=== PATIENT | female | born 1975 ===

== ENCOUNTER 2025-07-30 10:00 | Day surgery (SDC) | payer OTHER ==
[2025-07-22 09:21] LABS: URINE APPEARANCE Clear; URINE BILIRRUBIN Negative (NEGATIVE); URINE COLOR Yellow; URINE GLUCOSE Negative (NEGATIVE); URINE KETONE Trace (NEGATIVE); URINE LEUKOCYTE Negative; URINE NITRATE Negative; URINE PROTEIN Negative (NEGATIVE); URINE UROBILINOGEN 0.2 E.U./dl
[2025-07-22 09:22] LABS: BASO % 0.4 % (0.1-1.2); EOS # 0.08 (0.04-0.54); EOS % 1.6 % (0.7-7.0); LYMPH # 1.93 (1.18-3.74); LYMPH % 39.7 % (19.3-53.1); MEAN PLATELET VOLUME 9.20 fl (9.4-12.4); MONO # 0.25 (0.24-0.82); MONO % 5.1 % (4.7-12.5); NEUT # 2.57 (1.56-6.13); NEUT % 53.0 % (34.0-71.1); RED CELL DISTRIBUTION WIDTH 12.2 % (11.6-14.4)
[2025-07-22 09:24] VITALS: BP 124/86
[2025-07-22 09:25] LABS: URINE BACTERIA 21.5 uL (0.0-1933); URINE EPITHELIAL CELLS 2.4 uL (0.0-38.8); URINE RBC 18.1 uL (0.0-20.8); URINE WBC 3.0 uL (0.0-23.2)
[2025-07-22 09:28] LABS: URINE BLOOD TRACES; URINE CAST 0.29 uL (0.0-1.40)
[2025-07-22 09:45] LABS: INR 1.01
[2025-07-22 09:50] LABS: ALT/SGPT 23.0 U/L (12-78); AST/SGOT 13.0 U/L (15-37); BILIRUBIN TOTAL 0.51 mg/dL (0.3-1.2); BUN CREA RATIO 16.0 (7.0-25.0); CREATININE SERUM 0.62 mg/dL (0.55-1.02); GFR 103.18; GLOBULINA 3.6 G/DL (2.4-3.5); GLUCOSE FASTING 96.0 mg/dL (65-100); OSMOLALITY SERUM 284.0 MOSM/KG (275-295)
[~2025-07-30] VITALS: Ht 154.9 cm; Wt 80.3 kg
[~2025-07-30 10:00] MED LIST: ATORVASTATIN CA10 MG PO
[2025-07-30] MEDS ORDERED: DEXAMETHASONE SODIUM PHOSPHATE 4 MG/ML VIAL ONE (13:42)
[2025-07-30] MEDS ORDERED: MORPHINE SULFATE 4 MG/ML VIAL IV ONE (18:45)
== END 2025-07-30 20:15 | disposition home or self-care (01) ==
LOC: CIR.AMB 10:00
PROVIDERS: ATTEND Surgery
DX: E04.2 Nontoxic multinodular goiter (principal); Z91.041 Radiographic dye allergy status; Z91.013 Allergy to seafood